=== PATIENT | female | born 1970 | race Caucasian/White ===

== ENCOUNTER 2018-08-31 17:01 | Emergency (ER) | payer OTHER, BC ==
[2018-08-31 17:09] VITALS: RESP 20
[2018-08-31] MEDS ORDERED: SODIUM CHLORIDE 0.9% 1000ML 1,000 ML IV ONE (17:11)
[2018-08-31 17:16] LABS: BASOPHILS % (AUTO) 1 % (0-3); EOSINOPHILS % (AUTO) 2 % (0-9); HEMATOCRIT 37 % (35-47); HEMOGLOBIN 11.8 gm/dl (12.0-15.5); LYMPHOCYTES % (AUTO) 36.3 % (10-50); MEAN CORPUSCULAR HEMOGLOBIN 27.6 pg (27.0-32.0); MEAN CORPUSCULAR HGB CONC 31.6 gm/dl (32.0-36.0); MEAN CORPUSCULAR VOLUME 87 fL (81-99); MONOCYTES % (AUTO) 8.2 % (0-12); NEUTROPHILS % (AUTO) 52.9 % (37-80)
[2018-08-31 17:26] LABS: CALCIUM 8.4 mg/dl (8.5-10.1); CARBON DIOXIDE 26.9 mEq/L (21-32); CREATININE 0.86 mg/dl (0.60-1.00); POTASSIUM 3.5 mMol/L (3.5-5.1)
[2018-08-31 17:27] LABS: INR 0.91 (0.86-1.12)
[2018-08-31 19:45] VITALS: BP 136/90; PULSE 84; TEMP 97.9; O2SAT 96
== END 2018-08-31 19:37 | disposition home or self-care (01) | DRG 556 ==
LOC: ED 17:01
DX: M25.512 Pain in left shoulder (principal); T14.90XA Injury, unspecified, initial encounter; V40.6XXA Car passenger injured in collision with pedestrian or animal in traffic accident, initial encounter; R58 Hemorrhage, not elsewhere classified
CPT/HCPCS: 70450; 71045; 72125; 73030; 80048; 85025; 85610; 96365; 96366; 99283; 99284; G0390

== ENCOUNTER 2019-01-02 13:47 | Emergency (ER) | payer OTHER | END 2019-01-02 15:25 | disposition home or self-care (01) | LOC: ED 13:47 ==